=== PATIENT | male | born 1960 | race Two or more races ===

== ENCOUNTER → 2018-06-04 | Day surgery (SDC) | payer BC ==
[~2018-06-04] MED LIST: LIDOCAINE 2% PF Vial for OR 5 ML VIAL.; PROPOFOL 40 ML IV
[2018-06-04 10:27] LABS: POC GLUCOSE 139 mg/dL (70-99)
[2018-06-04] MEDS: IV RINGERS,LACTATED 1000ML 1,000 ML IV (10:36)
== END ==
LOC: SURG 09:52
DX: D12.8 Benign neoplasm of rectum (principal); K22.2 Esophageal obstruction; K21.0 Gastro-esophageal reflux disease with esophagitis; K29.70 Gastritis, unspecified, without bleeding; K22.10 Ulcer of esophagus without bleeding; K31.9 Disease of stomach and duodenum, unspecified; K64.0 First degree hemorrhoids; E11.9 Type 2 diabetes mellitus without complications; E78.00 Pure hypercholesterolemia, unspecified; F41.9 Anxiety disorder, unspecified; M19.90 Unspecified osteoarthritis, unspecified site; Z98.890 Other specified postprocedural states; Z79.4 Long term (current) use of insulin; Z79.899 Other long term (current) drug therapy
CPT/HCPCS: 43239; 43248; 45380; 82962; 88305; 88342; J2001; J2704